=== PATIENT | male | born 1955 | race Caucasian/White ===

== ENCOUNTER 2019-09-07 13:24 | Emergency (ER) | payer BC, OTHER ==
--- NOTE | 2019-09-07 13:49 | EDM.PDOC ---
ED HPI GENERAL MEDICAL PROBLEM - General Chief Complaint: Upper Extremity Injury/Pain Stated Complaint: ARM INJURY Time Seen by Provider: 09/07/19 13:25 Source of Information: Reports: Patient History Limitations: Reports: No Limitations - History of Present Illness INITIAL COMMENTS - FREE TEXT/NARRATIVE: HISTORY AND PHYSICAL: History of present illness: Patient is a 64-year-old male who presents to the emergency room with complaints of left wrist pain. He states last night he was walking outside when he slipped and fell on an outstretched arm resulting in pain to the radial aspect of his left wrist. He has had increased swelling and discomfort with palpation of the area. He denies hitting his head or having any loss of consciousness. Denies any other extremity involvement. Patient denies any fever, chills, headache, change in vision, syncope or near syncope. Denies any chest pain, back pain, shortness of breath or cough. Denies any GI or symptoms. Patient has been eating and drinking appropriately. Review of systems: As per history of present illness and below otherwise all systems reviewed and negative. Past medical history: As per history of present illness and as reviewed below otherwise noncontributory. Surgical history: As per history of present illness and as reviewed below otherwise noncontributory. Social history: See social history for further information Family history: As per history of present illness and as reviewed below otherwise noncontributory. Physical exam: General: Well-developed and well-nourished 64-year-old male. Alert and oriented. Nontoxic-appearing and in no acute distress. HEENT: Atraumatic, normocephalic, pupils equal and reactive bilaterally, negative for conjunctival pallor or scleral icterus, mucous membranes moist, trachea midline. No drooling or trismus noted. No meningeal signs. No hot potato voice noted. Lungs: Clear to auscultation, breath sounds equal bilaterally, chest nontender. Heart: S1S2, regular rate and rhythm without overt murmur Abdomen: Soft, nondistended, nontender. C-spine/Back: No pinpoint vertebral tenderness upon palpation. No crepitus, step -offs or obvious deformities. Patient is ambulatory into the emergency room without difficulty or deficit. Able to rock back on heels and walk on toes. Denies any urinary or fecal incontinence. Denies any numbness, tingling or saddle paresthesia. Skin: Soft tissue swelling noted to left proximal radial. Intact, warm, dry. No lesions or rashes noted. Extremities: Pain with palpation of the radial aspect of proximal left wrist with some soft tissue swelling and tenderness. Good flexion and extension. Positive cap refill less than 3 seconds. No snuffbox tenderness. Otherwise moves all other extremities per self without difficulty or deficits, negative for cords or calf pain. Neurovascular unremarkable. Neuro: Awake, alert, oriented. Cranial nerves II through XII unremarkable. Cerebellum unremarkable. Motor and sensory unremarkable throughout. Exam nonfocal. Notes: X-ray shows a wrist fracture, slightly comminuted with mild posterior impaction which causes mild dorsal tilt of the distal radius. Degenerative change of the distal navicular bone. Soft tissue swelling. Hard fiberglass splint was applied with education. Encouraged him to follow-up with Ortho, call today for an appointment. Supportive care measures were reviewed and discussed. Voices understanding and is agreeable to plan of care. Denies any further questions or concerns at this time. Diagnostics: X-ray Therapeutics: Fiberglass splint, sling Prescription: [place] (#20) Impression: Distal radius fracture, left Plan: 1. Rest, ice, elevate the affected extremity. Please wear the splint and sling as directed. 2. Tylenol and/or Ibuprofen as needed for pain management. 3. Follow up with the Orthopedic provider as we discussed. Call today to set up your follow up appointment. 4. Return to the ED as needed and as discussed. Definitive disposition and diagnosis as appropriate pending reevaluation and review of above. left arm Pain Score (Numeric/FACES): 6 - Related Data Allergies Allergy/AdvReac Type Severity Reaction Status Date / Time No Known Allergies Allergy Verified 09/07/19 13:44 Home Meds: Home Meds . [No Known Home Meds] 09/07/19 [History] Review of Systems - Review of Systems Review Of Systems: Comprehensive ROS is negative, except as noted in HPI. ED EXAM, GENERAL - Physical Exam Exam: See Below (See dictation) Course - Vital Signs Last Recorded V/S: Last Vital Signs Temp 97.0 F 09/07/19 13:41 Pulse 67 09/07/19 13:48 Resp 16 09/07/19 13:41 BP 147/61 H 09/07/19 13:48 Pulse Ox 96 01/30/20 13:41 - Orders/Labs/Meds Orders: Active Orders 24 hr Category Date Time Status DME for Discharge [COMM] Stat Oth 09/07/19 14:14 Ordered Departure - Departure Time of Disposition: 14:42 Disposition: Home, Self-Care 01 Clinical Impression: Distal radius fracture, left Qualifiers: Encounter type: initial encounter Fracture type: closed Fracture morphology: other fracture Qualified Code(s): S52.592A - Other fractures of lower end of left radius, initial encounter for closed fracture - Discharge Information Instructions: Wrist Fracture Treated With Immobilization, [id number] Referrals: PCP,None [Primary Care Provider] - Forms: ED Department Discharge Additional Instructions: The following information is given to patients seen in the emergency department who are being discharged to home. This information is to outline your options for follow-up care. We provide all patients seen in our emergency department with a follow-up referral. The need for follow-up, as well as the timing and circumstances, are variable depending upon the specifics of your emergency department visit. If you don't have a primary care physician on staff, we will provide you with a referral. We always advise you to contact your personal physician following an emergency department visit to inform them of the circumstance of the visit and for follow-up with them and/or the need for any referrals to a consulting specialist. The emergency department will also refer you to a specialist when appropriate. This referral assures that you have the opportunity for follow-up care with a specialist. All of these measure are taken in an effort to provide you with optimal care, which includes your follow-up. Under all circumstances we always encourage you to contact your private physician who remains a resource for coordinating your care. When calling for follow-up care, please make the office aware that this follow-up is from your recent emergency room visit. If for any reason you are refused follow-up, please contact the [facility] Emergency Department at and asked to speak to the emergency department charge nurse. Dr Blackman, orthopedics [facility] [place] 1. Rest, ice, elevate the affected extremity. Please wear the splint and sling as directed. 2. Tylenol and/or Ibuprofen as needed for pain management. 3. Follow up with the Orthopedic provider as we discussed. Call today to set up your follow up appointment. 4. Return to the ED as needed and as discussed. Sepsis Event Note - Evaluation Sepsis Screening Result: No Definite Risk - Focused Exam Vital Signs: Vital Signs Temp Pulse Resp BP Pulse Ox 09/07/19 13:48 67 147/61 H 09/07/19 13:41 97.0 F 16 96 Date Exam was Performed: 09/07/19 Time Exam was Performed: 14:40 - My Orders Last 24 Hours: My Active Orders 09/07/19 14:14 DME for Discharge [COMM] Stat - Assessment/Plan Last 24 Hours: My Active Orders 09/07/19 14:14 DME for Discharge [COMM] Stat
--- NOTE | 2019-09-07 14:39 | CR ---
Left wrist: 3 views left wrist were obtained. Comparison: No previous wrist exam. Distal radial fracture is seen through the metaphysis. Fracture is slightly comminuted with mild posterior impaction which causes mild dorsal tilt of the distal radial articular margin. Small avulsion fracture is noted off the ulnar styloid process. Joint space narrowing is noted off the distal navicular bone. Soft tissue swelling is noted. No additional abnormality is seen. Impression: 1. Wrist fracture as described above. 2. Degenerative change off the distal navicular bone. 3. Soft tissue swelling. Diagnostic code #3 This report was dictated in [place] Standard Time
== END 2019-09-07 15:26 | disposition home or self-care (01) ==
LOC: MW.ED 13:24
DX: S52.502A Unspecified fracture of the lower end of left radius, initial encounter for closed fracture (principal); W01.0XXA Fall on same level from slipping, tripping and stumbling without subsequent striking against object, initial encounter; Y93.01 Activity, walking, marching and hiking; Y92.89 Other specified places as the place of occurrence of the external cause
CPT/HCPCS: 29125; 73110-26-LT; 73110-LT; 99283-25

== ENCOUNTER 2019-09-13 07:25 | Day surgery (SDC) | payer BC ==
[~2019-09-13 07:25] MED LIST: Lactated Ringers 1,000 ML IV SCH
[2019-09-13] MEDS ORDERED: ceFAZolin 2 GM in Premix Bag 1 BAG IV SCH (08:00)
[2019-09-13] MEDS ORDERED: Propofol 200 MG/20 ML SDV ONE (08:56)
[2019-09-13] MEDS ORDERED: Midazolam 1 MG/ML 2 ML SDV ONE (08:56)
[2019-09-13] MEDS ORDERED: fentaNYL 100 MCG/2 ML SDV ONE ×2 (08:56→10:41)
[2019-09-13] MEDS ORDERED: Glycopyrrolate 0.2 MG/ML SDV ONE (08:58)
[2019-09-13] MEDS ORDERED: Ketorolac 30 MG/ML SDV ONE (08:58)
[2019-09-13] MEDS ORDERED: Ondansetron 4 MG/2 ML SDV ONE (08:58)
[2019-09-13] MEDS ORDERED: Lidocaine 2% 5 ML SDV ONE (08:58)
--- NOTE | 2019-09-13 09:09 | PCM.PREANE ---
Preanesthetic Assessment - Anesthesia/Transfusion/Family Hx Anesthesia History: No Prior Anesthesia Transfusion History: No Prior Transfusion(s) - Review of Systems General: No Symptoms Pulmonary: No Symptoms Cardiovascular: No Symptoms Gastrointestinal: No Symptoms Neurological: No Symptoms Other: Reports: None - Physical Assessment NPO Status Date: 09/12/19 NPO Status Time: 23:00 Vital Signs: Last Vital Signs Temp 98.2 F 09/13/19 08:00 Pulse 69 09/13/19 08:00 Resp 16 09/13/19 08:00 BP 128/60 09/13/19 08:00 Pulse Ox 98 09/13/19 08:00 Height: 5 ft 11 in Weight: 79.379 kg ASA Class: 2 Mental Status: Alert & Oriented x3 Airway Class: Mallampati = 2 Dentition: Reports: Normal Dentition ROM/Head Extension: Full Lungs: Clear to Auscultation, Normal Respiratory Effort Cardiovascular: Regular Rate, Regular Rhythm - Allergies Allergies/Adverse Reactions: Allergies Allergy/AdvReac Type Severity Reaction Status Date / Time No Known Allergies Allergy Verified 09/12/19 11:09 - Blood Blood Available: No - Anesthesia Plan Pre-Op Medication Ordered: None - Acknowledgements Anesthesia Type Planned: General Anesthesia Pt an Appropriate Candidate for the Planned Anesthesia: Yes Alternatives and Risks of Anesthesia Discussed w Pt/Guardian: Yes Pt/Guardian Understands and Agrees with Anesthesia Plan: Yes Additional Comments: Darrell prob list: ms- asymptomatic now, on no meds, heartburn- asymptomatic when off caffeine, taoism- wants no blood products PLAN: tiva PreAnesthesia Questionnaire - Past Health History Medical/Surgical History: Denies Medical/Surgical History HEENT History: Reports: None Cardiovascular History: Reports: None Respiratory History: Reports: None Gastrointestinal History: Reports: None Genitourinary History: Reports: None Musculoskeletal History: Reports: Fracture Other Musculoskeletal History: hx fxs to both wrists Neurological History: Reports: None Psychiatric History: Reports: None Endocrine/Metabolic History: Reports: None Hematologic History: Reports: None Immunologic History: Reports: None Other Oncologic History: melanoma removed from back Dermatologic History: Reports: None - Infectious Disease History Infectious Disease History: Reports: Chicken Pox - Past Surgical History Head Surgeries/Procedures: Reports: None HEENT Surgical History: Reports: None Cardiovascular Surgical History: Reports: None Respiratory Surgical History: Reports: None GI Surgical History: Reports: None Male Surgical History: Reports: None Endocrine Surgical History: Reports: None Neurological Surgical History: Reports: None Other Musculoskeletal Surgeries/Procedures:: surgical tx for fx rt wrist Oncologic Surgical History: Reports: None Dermatological Surgical History: Reports: Skin Biopsy - SUBSTANCE USE Smoking Status *Q: Never Smoker Tobacco Use Within Last Twelve Months: No Days Per Week of Alcohol Use: 1 Recreational Drug Use History: No - HOME MEDS Home Medications: Home Meds Cellular Defense 1 tab PO DAILY 09/12/19 [History] - CURRENT (IN HOUSE) MEDS Current Meds: Current Medications Cefazolin Sodium/Dextrose 2 gm (/ Premix) 50 mls @ 100 mls/hr IV ONCALL ROMULO Lactated Ringer's (Ringers, Lactated) 1,000 mls @ 100 mls/hr IV [facility]ED [facility] Last Admin: 09/13/19 08:10 Dose: 100 mls/hr Discontinued Medications Fentanyl (Sublimaze) Confirm Administered Dose 100 mcg .ROUTE .STK-MED ONE Stop: 09/13/19 08:57 Glycopyrrolate (Robinul) Confirm Administered Dose 0.2 mg .ROUTE .STK-MED ONE Stop: 09/13/19 08:59 Ketorolac Tromethamine (Toradol) Confirm Administered Dose 30 mg .ROUTE .STK- MED ONE Stop: 09/13/19 08:59 Lidocaine (Xylocaine-Mpf 2%) Confirm Administered Dose 5 ml .ROUTE .STK-MED ONE Stop: 09/13/19 08:59 Midazolam HCl (Versed 1 Mg/Ml) Confirm Administered Dose 2 mg .ROUTE .STK-MED ONE Stop: 09/13/19 08:57 Ondansetron HCl (Zofran) Confirm Administered Dose 4 mg .ROUTE .STK-MED ONE Stop: 09/13/19 08:59 Propofol (Diprivan 20 Ml) Confirm Administered Dose 200 mg .ROUTE .STK-MED ONE Stop: 09/13/19 08:57
[2019-09-13] MEDS ORDERED: Bupivacaine 0.25% 10 ML SDV ONE (09:55)
[2019-09-13] MEDS: fentaNYL 100 MCG/2 ML SDV IVPUSH PRN ×2 (11:53→12:02)
--- NOTE | 2019-09-13 11:53 | PCM.DCSUM1 ---
Discharge Summary - Discharge Data Discharge Date: 09/13/19 Discharge Disposition: Home, Self-Care 01 Condition: Good - Referral to Home Health Primary Care Physician: PCP None - Patient Instructions Diet: Regular Diet as Tolerated Other/Special Instructions: You have a return appt. with Omaira MossPOOJA on. at 1:00pm Central Time. - Discharge Plan Home Medications: Home Meds Cellular Defense 1 tab PO DAILY 09/12/19 [History] Hydrocodone/Acetaminophen [[place] 5-325 Tablet] 1 each PO Q6H PRN #12 tablet 12/26 [Rx] Ibuprofen 600 mg PO Q8H PRN #30 tablet 09/13/19 [Rx] - Discharge Summary/Plan Comment DC Time >30 min.: No - Patient Data Vitals - Most Recent: Last Vital Signs Temp 97.2 F 09/13/19 11:39 Pulse 86 09/13/19 11:44 Resp 12 09/13/19 11:44 BP 163/82 H 09/13/19 11:44 Pulse Ox 95 09/13/19 11:44 Weight - Most Recent: 175 lb Med Orders - Current: Current Medications Fentanyl (Sublimaze) 50 mcg IVPUSH Q5M PRN PRN Reason: Pain Cefazolin Sodium/Dextrose 2 gm (/ Premix) 50 mls @ 100 mls/hr IV ONCALL ROMULO Lactated Ringer's (Ringers, Lactated) 1,000 mls @ 100 mls/hr IV ASD[facility]RECTED [facility] Last Admin: 09/13/19 08:10 Dose: 100 mls/hr Discontinued Medications Bupivacaine HCl (Sensorcaine-Mpf 0.25%) Confirm Administered Dose 10 ml .ROUTE .STK-MED ONE Stop: 09/13/19 09:56 Fentanyl (Sublimaze) Confirm Administered Dose 100 mcg .ROUTE .STK-MED ONE Stop: 09/13/19 08:57 Fentanyl (Sublimaze) Confirm Administered Dose 100 mcg .ROUTE .STK-MED ONE Stop: 09/13/19 10:42 Glycopyrrolate (Robinul) Confirm Administered Dose 0.2 mg .ROUTE .STK-MED ONE Stop: 09/13/19 08:59 Ketorolac Tromethamine (Toradol) Confirm Administered Dose 30 mg .ROUTE .STK- MED ONE Stop: 09/13/19 08:59 Lidocaine (Xylocaine-Mpf 2%) Confirm Administered Dose 5 ml .ROUTE .STK-MED ONE Stop: 09/13/19 08:59 Midazolam HCl (Versed 1 Mg/Ml) Confirm Administered Dose 2 mg .ROUTE .STK-MED ONE Stop: 09/13/19 08:57 Ondansetron HCl (Zofran) Confirm Administered Dose 4 mg .ROUTE .STK-MED ONE Stop: 09/13/19 08:59 Propofol (Diprivan 20 Ml) Confirm Administered Dose 200 mg .ROUTE .STK-MED ONE Stop: 09/13/19 08:57
--- NOTE | 2019-09-13 12:03 | PCM.OPNOTE ---
- General Post-Op/Procedure Note Date of Surgery/Procedure: 09/13/19 Operative Procedure(s): Open reduction and internal fixation of left extra- articular distal radius fracture Findings: Displaced fracture Pre Op Diagnosis: Left displaced/angulated distal radius fracture and ulnar styloid fracture Post-Op Diagnosis: Left displaced/angulated distal radius fracture and ulnar styloid fracture Anesthesia Technique: General LMA Primary Surgeon: Jorge L Rebollar Dental Biller: Omaira Moss Reason Dental Biller Was Necessary: Positioning and retraction EBL in mLs: 5 Complications: None Free Text/Narrative:: The risks and benefits of surgery were discussed with the patient. All questions were answered. Patient consented to proceed with surgery. Patient was taken to the operating room. After general anesthesia he remained in the supine position. Tourniquet was placed around the left upper arm. The left upper extremity and hand were prepped and draped in the usual sterile manner. The arm elevated the tourniquet inflated. A longitudinal incision was made over the flexor carpi radialis. Skin was incised with a scalpel. Subcutaneous tissue was incised electrocautery. The fascia over the flexor carpi radialis tendon was incised with a scissors. The tendon was retracted radially. Electrocautery was used to incise the pronator quadratus along the radial border of the distal radius. The proximal radius and shaft were exposed. A closed reduction maneuver was performed. A Anderson volar locking plate was applied and a conventional screw inserted. After C arm views, the plate position was adjusted. Then 5 locking screws were placed. An additional conventional screw was placed in the most proximal nonlocking hole. C arm confirmed excellent reduction and plate and screw position on AP and lateral views. The wounds were irrigated. Pronator quadratus was repaired with interrupted 0 Vicryl suture. Fascia was repaired with interrupted 0 Vicryl suture. Subcutaneous tissue was closed with interrupted 2-0 Vicryl sutures. Monocryl was used as a running subcuticular suture for final closure. A volar splint was applied and patient was come to the cover in stable condition. Pain management: Elevation, ibuprofen, Vicodin Venous thromboembolism prophylaxis not indicated for upper extremity fracture Restrictions: Nonweightbearing on the left upper extremity for 3 months. At the 2-week follow-up appointment, he should be switched to a Velcro wrist plate for support and may remove this for showering.
[2019-09-13] MEDS ORDERED: HYDROmorphone 2 MG/ML Syringe IVPUSH ONE ×2 (12:07→15:30)
[2019-09-13] MEDS ORDERED: HYDROmorphone 2 MG/ML Syringe ONE (12:13)
[2019-09-13] MEDS ORDERED: Acetaminophen/HYDROcodone 325-5 MG Tab PO ONE (12:52)
--- NOTE | 2019-09-13 13:30 | PCM.POSTAN ---
POST ANESTHESIA ASSESSMENT - MENTAL STATUS Mental Status: Alert, Oriented - VITAL SIGNS Vital Signs: Last Vital Signs Temp 97.2 F 09/13/19 12:30 Pulse 72 09/13/19 12:45 Resp 14 09/13/19 12:45 BP 166/76 H 09/13/19 12:45 Pulse Ox 97 09/13/19 12:45 - RESPIRATORY Respiratory Status: Respiratory Rate WNL, Airway Patent, O2 Saturation Stable - CARDIOVASCULAR CV Status: Pulse Rate WNL, Blood Pressure Stable - GASTROINTESTINAL GI Status: No Symptoms - POST OP HYDRATION Hydration Status: Adequate & Stable
--- NOTE | 2019-09-13 13:31 | PCM48HPAN ---
Post Anesthesia Note - EVALUATION WITHIN 48HRS OF ANESTHETIC Vital Signs in Normal Range: Yes Patient Participated in Evaluation: Yes Respiratory Function Stable: Yes Airway Patent: Yes Cardiovascular Function Stable: Yes Hydration Status Stable: Yes Pain Control Satisfactory: Yes Nausea and Vomiting Control Satisfactory: Yes Mental Status Recovered: Yes Vital Signs: Last Vital Signs Temp 97.2 F 09/13/19 12:30 Pulse 72 09/13/19 12:45 Resp 14 09/13/19 12:45 BP 166/76 H 09/13/19 12:45 Pulse Ox 97 09/13/19 12:45
[2019-09-13] MEDS: Haloperidol Lactate 5 MG/ML SDV ONE ×2 (14:20→15:10)
--- NOTE | 2019-09-14 11:12 | CR ---
EXAM DATE: 09/13/19 PATIENT'S AGE: 64 Wrist: 2 fluoroscopic spot views were obtained of the wrist. Site of exam not marked on the study. Plate and screws noted affixing a distal radial fracture. Small ulnar styloid avulsion fracture is seen. Joint space narrowing is noted off the distal navicular bone. Impression: 1. Fluoroscopic study as noted above. Diagnostic code #2 This report was dictated in [place] Standard Time Dictated by: Benjamin Khoury MD at , 1352 T: , Doc Number: [id number] Report Signed by Proxy. CASSIDY
== END 2019-09-13 16:40 | disposition home or self-care (01) ==
LOC: MW.SDS 07:25
PROVIDERS: ATTEND Orthopaedic Surgery
DX: S52.502A Unspecified fracture of the lower end of left radius, initial encounter for closed fracture (principal); S52.612A Displaced fracture of left ulna styloid process, initial encounter for closed fracture; W00.0XXA Fall on same level due to ice and snow, initial encounter; Y93.01 Activity, walking, marching and hiking; Z87.891 Personal history of nicotine dependence
CPT/HCPCS: 25607; 76000; A9270; C1713; J1170; J1630; J1885; J2001; J2250; J2405; J2704; J3010; J3490; J7120